=== PATIENT | female | born 1960 | race African-American/Black ===

== ENCOUNTER 2025-02-21 12:12 | Observation (INO) | payer OTHER ==
[2025-02-21 13:45] LABS: ABSOLUTE IMMATURE GRANULOCYTES 0.04 x10^3/uL (0.0-0.031); BASOPHILS # 0.07 x10^3/uL (0.01-0.08); EOSINOPHIL % 4.4 % (0.7-5.8); EOSINOPHILS # 0.39 x10^3/uL (0.04-0.36); MCHC 32.4 g/dl (32.2-35.5); MEAN CELL VOLUME 90.1 fl (79.4-94.8); MEAN PLT VOLUME 9.1 fl (9.4-12.3); MONOCYTE # 0.75 x10^3/uL (0.24-0.86); MONOCYTE % 8.5 % (4.7-12.5); RDW 15.6 % (12.4-16.4)
[2025-02-21 14:09] LABS: GLUCOSE,RANDOM 83.0 mg/dL (74-106); TOT PROT 7.5 g/dl (6.4-8.2)
[2025-02-21 14:10] LABS: CO2 31.0 mmol/L (21-32)
[2025-02-21 14:12] LABS: ALK PHOS 84.0 U/L (40-150)
[2025-02-21 14:14] LABS: CREATININE 0.93 mg/dL (0.55-1.3); SGOT/AST 26.0 U/L (5-34); SGPT/ALT 12.0 U/L (0-55)
[2025-02-21 14:34] LABS: HIV INTERPRETATION NEGATIVE (NEGATIVE)
[2025-02-21 14:36] LABS: HCV DIAGNOSTIC IN-HOUSE W/RFLX NON-REACTIVE (NONREACTIVE)
[2025-02-21 15:04] LABS: EPI CELLS >36 /uL (0-25.1); HYALINE CASTS 2 /uL (0-3.1); URINE APPEARANCE CLOUDY; URINE BACTERIA 641 /uL (0-1359); URINE BILIRUBIN 1+ (NEGATIVE); URINE COLOR DK YELLOW; URINE GLUCOSE (UA) NEGATIVE (NEGATIVE); URINE KETONE TRACE (NEGATIVE); URINE LEUK ESTERASE TRACE (NEGATIVE); URINE NITRITE NEGATIVE (NEGATIVE); URINE PROTEIN 1+ (NEGATIVE); URINE RBC 15 /uL (0-23.9); URINE UROBILINOGEN 1.0 mg/dL (0.2-1.0); URINE WBC 14 /uL (0-25.8)
[2025-02-21] MEDS ORDERED: ALBUTEROL SO4 2.5/IPRATROPIUM 0.5 INH SOL 3 ML VIAL.NEB. NEB ONE (15:31)
[2025-02-21] MEDS ORDERED: ACETAMINOPHEN 325 MG TABLET (FP) ONE (15:31)
[2025-02-21] MEDS ORDERED: ASPIRIN 81 MG CHEWABLE TABLETS ONE (15:31)
[2025-02-21] MEDS: ACETAMINOPHEN 325 MG TABLET (FP) PO ONE (15:36)
[2025-02-21] MEDS: ASPIRIN 81 MG CHEWABLE TABLETS PO ONE (15:36)
[2025-02-21] MEDS: ALBUTEROL SO4 2.5/IPRATROPIUM 0.5 INH SOL 3 ML VIAL.NEB. NEB ONE (15:36)
[2025-02-21] MEDS ORDERED: methylPREDNISolone NA SUCC 125 MG/2 ML VIAL ONE (17:59)
[2025-02-21] MEDS: methylPREDNISolone NA SUCC 125 MG/2 ML VIAL IVPUSH ONE (18:41)
[2025-02-21] MEDS ORDERED: ZOLPIDEM TARTRATE 5 MG TABLET PO PRN (19:28)
[2025-02-21] MEDS ORDERED: ACETAMINOPHEN 325 MG TABLET (FP) PO PRN (19:28)
[2025-02-21] MEDS: ALBUTEROL SO4 0.083% IH SOL 2.5 MG/3 ML VIAL.NEB. NEB SCH (20:05)
[2025-02-21 22:29] VITALS: BMI 38.0
[2025-02-22] MEDS: methylPREDNISolone NA SUCC 40 MG/1 ML VIAL IVPUSH SCH (01:22)
[2025-02-22 08:26] LABS: LDL CHOLESTEROL (ONLY SJRH) 68 mg/dL (5-100)
[2025-02-22] MEDS: VALSARTAN 80 MG TABLET PO SCH (09:21)
[2025-02-22] MEDS: amLODIPine BESYLATE 5 MG TABLET (FP) PO SCH (09:21)
[2025-02-22 10:20] VITALS: BP 156/90; PULSE 90; RESP 19; TEMP 98.2
== END 2025-02-22 10:36 | disposition home or self-care (01) ==
LOC: JER 12:12 → JERBED 16:16 → J4S 19:18
PROVIDERS: ADMIT Family Medicine; ATTEND Family Medicine
PROC: 3E0F7GC Introduction of Other Therapeutic Substance into Respiratory Tract, Via Natural or Artificial Opening (ICD-10-PCS; principal; 2025-02-21)
PROC: 3E033GC Introduction of Other Therapeutic Substance into Peripheral Vein, Percutaneous Approach (ICD-10-PCS; 2025-02-21)
DX: J44.1 Chronic obstructive pulmonary disease with (acute) exacerbation (principal); R07.9 Chest pain, unspecified; M54.9 Dorsalgia, unspecified; E78.5 Hyperlipidemia, unspecified; I10 Essential (primary) hypertension; F17.210 Nicotine dependence, cigarettes, uncomplicated
CPT/HCPCS: 36415; 71045-TC-FY; 71275-TC; 74174-TC; 80053; 80061; 81003; 83036; 83880; 84484; 85025; 86803; 87086; 87389; 93005; 93010; 94640; 96374; 96376; 99285-25; G0378; Q9967